=== PATIENT | male | born 1985 | race Caucasian/White ===

== ENCOUNTER 2018-09-13 09:46 | Emergency (ER) | payer MEDICAID, SELFPAY ==
[2018-09-13 09:48] VITALS: BP 170/88; PULSE 94; RESP 18; TEMP 36.6; O2SAT 93; BMI 27.0
--- NOTE | 2018-09-13 09:59 | ED.VISSUMM ---
- ER Visit Summary Date of Service: 09/13/18 Chief Complaint: Overdose History of Present Illness: The patient is a 33 M who presents by EMS after a fentanyl overdose. He found the fentanyl when he was cleaning his house. He has been clean for some time. He required 2 mg of Narcan and then 1 additional milligram per EMS. He currently has no complaints. He is not suicidal. Physical Examination: Afebrile and vital signs unremarkable except for some hypertension. He is alert and oriented. Sitting comfortably. No acute distress. Heart regular. Lungs clear. Abdomen soft. Skin appears normal. Test Results: None indicated Emergency Department Course and Treatment: IV and monitor placed. Patient did not require additional intervention here. He was observed for over an hour. He had no respiratory depression, change in mental status, desaturation, or any other abnormal findings that required further intervention or treatment. Patient does have an established addiction program. Patient will be discharged. Treatment Plan: As above Disposition: Discharge Impression: 1. Opioid overdose This note was generated with [employer] dictation software. It may contain incorrect words, spelling, and punctuation that were not noted in review of the chart prior to signing
--- NOTE | 2018-09-13 10:01 | ED.DEP ---
ED Disposition - Plan for ED Patient: Instructions: OVERDOSE, Opiate Additional Instructions: Follow up with your addiction care provider(s)
[2018-09-13 11:18] VITALS: BP 154/86; PULSE 87; RESP 13; O2SAT 98
== END 2018-09-13 11:23 | disposition home or self-care (01) ==
LOC: ED 10:21
PROVIDERS: Emergency Provider Emergency Medicine
DX: T40.2X1A Poisoning by other opioids, accidental (unintentional), initial encounter (principal); Y92.9 Unspecified place or not applicable; L40.9 Psoriasis, unspecified
CPT/HCPCS: 99285; A4216

== ENCOUNTER 2019-05-13 18:08 | Emergency (ER) | payer MEDICAID, SELFPAY ==
[2019-05-13 18:10] VITALS: BP 137/83; PULSE 68; RESP 17; TEMP 37; O2SAT 97; BMI 24.7
--- NOTE | 2019-05-13 18:31 | ED.VIS.GEN ---
History of Present Illness Chief Complaint: Substance Abuse Detail of Chief Complaint: Requesting detox from opiates Informant: Patient Narrative: Patient presents requesting admission for detox from opiates. Patient has a history of fentanyl abuse. He states he been clean for about a year, but over the past week was letting a friend stay with him. He started using fentanyl again with his friend. He would snort the drug. Last use was 11 hours ago. Patient states he feels slightly shaky and nauseated with some sweats. He went through the program at [facility] previously. - Past Medical History (1) Opiate abuse, episodic Status: Acute Past Medical History - Allergies and Home Meds Allergies/Adverse Reactions: Allergies shellfish derived Allergy (Verified 05/13/19 18:09) Rash Primary Care Physician: Care Physician,No Primary [Primary Care Provider] - Prior records reviewed: Yes Smoking Status: Current every day smoker Alcohol: None Drugs: - - Fentanyl Review of Systems General: Denies: Chills, Fever Eyes: Denies: Visual changes - bilaterally ENT: Denies: Bilateral ear pain Cardiovascular: Denies: Chest pain Respiratory: Denies: Dyspnea, Cough Gastrointestinal: Reports: Nausea. Denies: Abdominal pain, Vomiting Genitourinary: Denies: Dysuria Musculoskeletal: Denies: Extremity Pain Skin: Denies: Rash, Wounds Neurological: Denies: Headache Allergy: Denies: Uticaria Physical Exam Vital Signs/Narrative: Vital Signs Temp Pulse Resp BP Pulse Ox 05/13/19 18:10 98.6 F 68 17 137/83 H 97 Inital Vital Signs reviewed: Yes General: Well nourished, Well developed Head: Normocephalic ENT: Moist mucous membranes Neck: Supple Cardiovascular: Regular rate, Regular rhythm Respiratory: No distress, CTA bilaterally Abdomen: Soft, Nontender Extremities: - - Fine tremor noted to his hands. Skin: Normal color Neurological: Alert, Oriented x3, Normal Strength, Normal Sensation Psychological: Normal affect Diagnostic/Tx/Re-eval - Medical Decision Making Laboratory work-up was ordered along with Ativan and Zofran. As advised by nursing staff the patient change his mind he did not want to stay any longer for treatment. He wants to go spend the night with his family and then will come back tomorrow for detox placement. I advised the patient I cannot force him to stay. We are happy to help him if he would like help. He is given information for follow-up at [facility] as well. ED Disposition - Plan for ED Patient: Disposition: Home or Assisted Living Diagnosis: Opiate abuse, episodic Instructions: Opiate Abuse Referrals: [facility] [STAFF PHYSICIAN] -
--- NOTE | 2019-05-13 18:50 | NURSING ---
PATIENT NOT WANTING TO STAY FOR DETOX OR RECEIVE ANY TREATMENT AT THIS, SAYS HE WILL RETURN IN THE MORNING. THIS RN AND DR JOHANN BAHENA SPOKE WITH PT AND ENCOURAGED HIM TO STAY
== END 2019-05-13 18:55 | disposition home or self-care (01) ==
LOC: ED 18:54
PROVIDERS: Emergency Provider Emergency Medicine
DX: F11.10 Opioid abuse, uncomplicated (principal); F17.200 Nicotine dependence, unspecified, uncomplicated
CPT/HCPCS: 99281; J2405

== ENCOUNTER 2019-05-14 10:15 | Observation (INO) | payer MEDICAID, SELFPAY ==
[2019-05-13 18:10] VITALS: BMI 24.7
[2019-05-14 10:15] VITALS: BP 135/78; PULSE 66; RESP 16; TEMP 36.7; O2SAT 100; BMI 25.9
--- NOTE | 2019-05-14 10:31 | ED.VIS.GEN ---
History of Present Illness Informant: Patient Onset: Weeks - 1 week Context: Gradual Onset Timing: Continuous Quality: aching Location: myalgias Current Severity: Severe Maximum Severity: Severe Worsened by: fentanyl and heroin Relieved by: nothing Associated Symptoms: none Narrative: 33-year-old male history of psoriatic arthritis presents for detox from opiates. He snorts fentanyl and heroin. Had been clean for 1 year but relapsed in the last week. Was here yesterday and decided to leave before being admitted. He has been using today and last night. He has no chest pain shortness of breath palpitations nausea vomiting or diarrhea lightheadedness or dizziness fevers or chills or upper respiratory symptoms. Prior similar symptoms: Yes Recent Illness/Hospitalization: No <Isra Corona - Last Filed: 05/14/19 10:31> <Kyrie Morgan - Last Filed: 05/14/19 10:41> Chief Complaint: Substance Abuse Past Medical History Prior records reviewed: Yes Past Medical History: - - Psoriatic arthritis Surgical History: no surgical history Lives: With Family Smoking Status: Current every day smoker Alcohol: Occasional Drugs: Heroin <Isra Corona - Last Filed: 05/14/19 10:31> <Kyrie Morgan - Last Filed: 05/14/19 10:41> - Allergies and Home Meds Allergies/Adverse Reactions: Allergies shellfish derived Allergy (Verified 05/14/19 10:16) Rash Review of Systems All systems negative except as indicated General: Denies: Chills, Fever, Malaise Eyes: Denies: Visual changes - bilaterally, Blurred Vision - bilaterally, Diplopia ENT: Denies: Rhinorrhea, Sore throat Cardiovascular: Denies: Chest pain, Palpitations, Heart racing Respiratory: Denies: Dyspnea, Cough, Sputum Gastrointestinal: Denies: Abdominal pain, Nausea, Vomiting, Diarrhea Genitourinary: Denies: Dysuria, Hematuria, Frequency Musculoskeletal: Denies: Myalgias, Arthralgias, Neck pain, Back pain Skin: Denies: Rash, Abscess, Abrasions Neurological: Denies: Headache, Weakness, Parasthesia Hematologic: Denies: Easy bruising, Easy bleeding <Isra Corona - Last Filed: 05/14/19 10:31> Physical Exam Vital Signs/Narrative: Vital Signs Temp Pulse Resp BP Pulse Ox 03/14/20 10:15 98.0 F 66 16 135/78 H 100 Inital Vital Signs reviewed: Yes General: Well nourished, Well developed, No Acute Distress Head: Normocephalic, Atraumatic ENT: Moist mucous membranes Neck: Supple, Nontender Cardiovascular: Regular rate, Regular rhythm, No murmurs Respiratory: No distress, CTA bilaterally, Chest nontender Abdomen: Soft, Nontender, Nondistended, Normal bowel sounds, No masses Back: Nontender, Normal Inspection Extremities: Nontender, No edema Skin: Normal color, No rash Neurological: Alert, Oriented x3 Psychological: Normal affect, Normal Mood <Isra Corona - Last Filed: 05/14/19 10:31> Vital Signs/Narrative: Vital Signs Temp Pulse Resp BP Pulse Ox 05/14/19 10:15 98.0 F 66 16 135/78 H 100 <Kyrie Morgan - Last Filed: 05/14/19 10:41> Diagnostic/Tx/Re-eval - Medical Decision Making Patient presents in no acute distress he has normal stable vital signs he is well-appearing. We discussed with him at this time he does not require emergent admission for this as we are in the midst of a nationwide healthcare crisis and a pandemic secondary to the coronavirus. He will be prescribed Phenergan and fentanyl he has been detoxed before at [facility] and he will follow-up there <Isra Corona - Last Filed: 05/14/19 10:31> - Medical Decision Making The patient was seen with Isra the PA agree with history and physical as above, the patient's vital signs are unremarkable he is in no distress, presents asking for aquatic abuse detox, were currently in the midst of national emergency related to coronavirus his physical exam is unremarkable he is in no distress no signs of active withdrawal he just used recently we will discuss with the incident command crisis response team at the hospital related to advisability of admission for the patient <Kyrie Morgan - Last Filed: 05/14/19 10:41> ED Disposition <Isra Corona - Last Filed: 05/14/19 10:31> <Kyrie Morgan - Last Filed: 05/14/19 10:41> - Plan for ED Patient: Disposition: Home or Assisted Living Diagnosis: Opiate abuse, episodic Instructions: Opiate Abuse Prescriptions: Dicyclomine HCl [Bentyl] 20 mg PO TIDAC #20 cap Prescription Printed proMETHazine tablet [Phenergan] 25 mg PO Q6H PRN PRN #10 tab PRN Reason: Nausea Prescription Printed Additional Instructions: [facility] in [place], [place] Address: [address] [place] [id number] Opens 8AM Mon
--- NOTE | 2019-05-14 11:03 | NURSING ---
DR MILLAN FOR DR HARO
--- NOTE | 2019-05-14 11:07 | NURSING ---
MED SURG YANA MEDICALLY ASSISTED WITHDRAWAL/OPIATE ABUSE
[2019-05-14 11:15] VITALS: BP 126/68; PULSE 56; RESP 17; TEMP 36.7; O2SAT 98
--- NOTE | 2019-05-14 11:18 | CM.ED ---
Social Work Referral: Substance Abuse Informant: Rossy Tse Met with patient in room. Patient stating substance of choice is Heroine and Fentanyl. Patient stating to have last used what patient believed was Fentanyl this morning. Patient stating to have plans to being IOP program at [facility] on Thursday and to have thought that patient was going to be able to detox at home but It is not working. Patient wanting to be admitted for medically assisted withdrawal. Updated medical team on above information. Plan is for patient to be admitted. Jacobo DOTSON, KAITLYN
[2019-05-14 11:24] LABS: Absolute Lymphocyte Count 2.19 X10^3/uL (0.83-4.51); Absolute Neutrophil Count 5.4 X10^3/uL (2.0-7.7); Basophil# 0.04 X10^3/uL; Basophil% 0.5 % (0-1); Eosinophil# 0.35 X10^3/uL; Hematocrit 41.7 % (40-54); Hemoglobin 13.8 g/dL (13.0-16.5); Lymphocyte # 2.19 X10^3/ul (4.0); Lymphocyte % 24.7 % (19-41); Mean Corp Hgb Conc 33.1 g/dL (32-36); Mean Corpuscular Hgb 29.3 pg (27.0-32.0); Mean Corpuscular Volume 88.5 fL (80-94); Mean Platelet Vol. 8.5 fl (6.2-12.0); Monocyte# 0.86 X10^3/uL; Monocyte% 9.7 % (0-10); NRBC Flagged by Analyzer 0 % (0-5); Neutrophil # 5.39 X10^3/uL (2.7-7.7); Neutrophil % 60.9 % (47-70); Platelet Count 418 K/mm3 (150-450); RBC Distribution Width CV 12.2 % (11.6-14.6); RBC Distribution Width SD 39.6 fl (35.1-43.9); Red Blood Count 4.71 M/mm3 (4.6-6.2); White Blood Count 8.9 K/mm3 (4.4-11.0)
[2019-05-14 11:36] LABS: Alcohol, Blood (Medical)-Serum < 3.0 mg/dL
[2019-05-14 11:37] LABS: ALB/GLOB Ratio 1.1 RATIO (0.9-2.4); AST(SGOT) 13 U/L (15-37); Alanine Aminotransfer ALT/SGPT 36 U/L (16-61); Albumin, Serum 4.1 g/dL (3.2-5.0); Alkaline Phosphatase 83 U/L (45-117); Anion Gap 6 (5-15); BUN 7 mg/dL (7-18); BUN/Creat Ratio 7.4 RATIO (10-20); Calcium,Total 8.9 mg/dL (8.5-10.1); Chloride 103 mmol/L (98-107); Creatinine, Serum 0.94 mg/dL (0.70-1.30); EST Glomerular Filtration Rate 99 mL/min (>60); Est Glom Filt Rate - Afr Amer 119 mL/min (>60); Estimated Creatinine Clearance 128.68 ml/min; Globulin 3.6 g/dL (2.2-4.2); Glucose 99 mg/dL (74-106); Potassium 3.3 mmol/L (3.5-5.1); Protein, Total 7.7 g/dL (6.4-8.2); Sodium Level 140 mmol/L (136-145)
[2019-05-14 11:38] LABS: Amphetamine Urine VISTA NEGATIVE (<1000 ng/mL); Barbiturate Urine VISTA NEGATIVE (< 200 ng/mL); Benzodiazepine Urine VISTA NEGATIVE (< 200 ng/mL); Cocaine Urine VISTA NEGATIVE (< 300 ng/mL); Ecstacy Urine VISTA NEGATIVE (< 500 ng/mL); Methadone Urine VISTA NEGATIVE (< 300 ng/mL); PCP Urine VISTA NEGATIVE (< 25 ng/mL); THC Urine VISTA NEGATIVE (< 50 ng/mL); Vista UDS pH Range 6
[2019-05-14 12:02] VITALS: BMI 26.1
--- NOTE | 2019-05-14 12:21 | CM.ED ---
Social Work Telephone call to [facility] treatment navigator, jag tirado requesting return phone call to update on patient being admitted for medical withdrawal management. Jacobo Galan MSW, KAITLYN
[2019-05-14 12:50] VITALS: BP 130/79; PULSE 65; RESP 18; TEMP 36.9; O2SAT 98
--- NOTE | 2019-05-14 13:18 | PCM.HP.STD ---
History of Present Illness Date of Admission: 05/14/19 Chief Complaint: Heroin detox The patient is a 33 year old M with no past medical history presents after snorting heroin for the last several days. His last use was 3 to 4 hours ago and is approximately 1 g. He says he never injects only snorts. He had been clean for about 1year and had gone [facility] as well as [facility] and has been doing well. He did have his first child born about 3 weeks ago and then he states that a friend of his who was going through drug rehab as well reached out to him for a place to stay and that is when he started using again. He currently feels okay and states he does not have any tremors or anxiety at the moment. Past Medical History Allergies shellfish derived Allergy (Verified 05/14/19 10:16) Rash Home Medications: Ambulatory Orders Medication Instructions Recorded Dicyclomine HCl [Bentyl] 20 mg PO TIDAC #20 cap 05/14/19 proMETHazine tablet [Phenergan] 25 mg PO Q6H PRN PRN #10 tab 05/14/19 Surgical History: no surgical history Lives: With Family Smoking Status: Current every day smoker Tobacco Use: Cigarettes, Vapor Alcohol: Occasional Drugs: Heroin - *Family History Maternal History Items: Heart Disease, - - Arthritis Paternal History Items: Diabetes, Heart Disease Review of Systems Constitutional: Denies: Chills, Fever, Weight Change HEENT: Denies: Head Aches, Sinus Congestion, Sinus Drainage Cardiovascular: Denies: Chest Pain, Palpitations Respiratory: Denies: Cough, Shortness of breath at rest, Sputum production Gastrointestinal: Denies: Abdominal Pain, Nausea, Vomiting Genitourinary: Denies: Dysuria Musculoskeletal: Denies: Joint Pain, Joint Tenderness Skin: Denies: Rash, Wounds Neurological: Denies: Numbness, Tingling, Focal weakness Psychiatric: Denies: Anxiety, Depression Hematologic/ Lymphatic: Denies: Easy Bruising, Easy Bleeding VTE Information - Inpt Only VTE Present on Admission: No Patient Problems: Active and Suspected Problems Opiate abuse, episodic (Acute) - Physical Exam Vitals/I&O's: Vital Signs Temp Pulse Resp BP Pulse Ox 98.5 F 65 18 130/79 H 98 05/14/19 12:50 05/14/19 12:50 05/14/19 12:50 05/14/19 12:50 05/14/19 12:50 Oxygen Delivery Method Room Air Weight: 192 lb 7.417 oz Body Mass Index (BMI) 26.1 General: Alert, Oriented x3, Cooperative, No apparent distress HEENT: Atraumatic, PERRLA, EOMI, Normocephalic Oral: Moist Mucosa Neck: Supple, No JVD Lungs: Clear to auscultation, Normal air movement, No rhonchi, No wheeze, No rales, Diminished Cardiovascular: Regular rate, Regular Rhythm, Normal S1, Normal S2, No murmurs Abdomen: Soft, Non Tender, Non-Distended, No Hepato-splenomegaly Extremities: No edema, Capillary Refill Less than 3 Seconds Skin: No rashes, No breakdown Neurological: Neuro grossly intact, Sensory exam intact to light touch and pain Psych/Mental Status: Normal Affect, Appropriate Laboratory Results 05/14/19 11:05: WBC 8.9, RBC 4.71, Hgb 13.8, Hct 41.7, MCV 88.5, MCH 29.3, MCHC 33.1, RDW Std Deviation 39.6, RDW Coeff of Ilya 12.2, Plt Count 418, MPV 8.5, Immature Gran % (Auto) 0.200, Neut % (Auto) 60.9, Lymph % (Auto) 24.7, [place] % (Auto) 9.7, Eos % (Auto) 4.0, Baso % (Auto) 0.5, Absolute Neuts (auto) 5.4, Absolute Lymphs (auto) 2.19, Nucleated RBC % 0 05/14/19 11:05: Sodium 140, Potassium 3.3 L, Chloride 103, Carbon Dioxide 31.0, Anion Gap 6, BUN 7, Creatinine 0.94, Estim Creat Clear Calc 128.68, Est GFR (MDRD) Af Amer 119, Est GFR (MDRD) Non-Af 99, BUN/Creatinine Ratio 7.4 L, Glucose 99, Calcium 8.9, Total Bilirubin 0.30, AST 13 L, ALT 36, Alkaline Phosphatase 83, Total Protein 7.7, Albumin 4.1, Globulin 3.6, Albumin/Globulin Ratio 1.1 05/14/19 11:05: Ethyl Alcohol < 3.0 05/14/19 11:10: Urine Opiates Screen NEGATIVE, Urine Methadone Screen NEGATIVE, Ur Barbiturates Screen NEGATIVE, Ur Phencyclidine Scrn NEGATIVE, Ur Amphetamines Screen NEGATIVE, U Methamphetamin-MDMA NEGATIVE, U Benzodiazepines Scrn NEGATIVE, Urine Cocaine Screen NEGATIVE, U Cannabinoids Screen NEGATIVE, Ur Drug Screen Comment Current Medications Buprenorphine HCl (Buprenorphine Hcl) 0 mg SL Q8H MARTINA; Taper Stop: 05/17/19 12:14 Clonidine (Catapres) 0.1 mg PO Q8H PRN PRN PRN Reason: RESTLESSNESS Dicyclomine HCl (Bentyl) 20 mg PO Q6H PRN PRN PRN Reason: Abdominal Discomfort Gabapentin (Neurontin) 300 mg PO Q8H PRN PRN PRN Reason: moderate to severe anxiety Hydroxyzine Pamoate (Vistaril Pamoate Capsule) 50 mg PO Q6H PRN PRN PRN Reason: mild anxiety Loperamide HCl (Imodium) 2 mg PO Q4H PRN PRN PRN Reason: LOOSE STOOLS Methocarbamol (Methocarbamol) 1,500 mg PO Q6H PRN PRN PRN Reason: MUSCLE SPASM Ondansetron HCl (Zofran) 8 mg PO Q8H PRN PRN PRN Reason: NAUSEA Sodium Chloride () 10 - 40 ml IV UD PRN PRN Reason: SALINE FLUSH Trazodone HCl (Desyrel) 100 mg PO QHS PRN PRN PRN Reason: INSOMNIA Assessment/Plan All Active Problems Opiate abuse, episodic (Acute) 1. Heroin abuse/tobacco abuse -Last use was about 3 hours ago and of approximately 1 g -He has been using for the last week or 2 -We will continue with the opiate withdrawal protocol -We will make a nicotine patch available if he needs it -Discussed tobacco cessation DVT: Low risk Inpatient E&M: 25144 Subs Hosp L2
[2019-05-14 17:10] VITALS: BP 114/67; PULSE 55; RESP 16; TEMP 36.7; O2SAT 99
[2019-05-14] MEDS: hydrOXYzine PAM 25 MG Capsule 50 MG PO (17:21)
[2019-05-14] MEDS: Buprenorphine HCl 2 MG TAB.SUBL SL (19:42)
[2019-05-14 20:55] VITALS: BP 125/73; PULSE 67; RESP 16; TEMP 36.7; O2SAT 98
[2019-05-14] MEDS: cloNIDine HCl 0.1 MG Tablet PO (21:07)
[2019-05-14] MEDS: Methocarbamol 750 MG Tablet 1500 MG PO (21:07)
[2019-05-15 01:10] VITALS: BP 115/73; PULSE 50; RESP 18; TEMP 36.6; O2SAT 99
[2019-05-15] MEDS: Buprenorphine HCl 2 MG TAB.SUBL SL ×3 (02:45→18:50)
[2019-05-15 05:10] VITALS: BP 112/70; PULSE 50; RESP 18; TEMP 36.6; O2SAT 99
[2019-05-15 08:33] VITALS: BP 117/73; PULSE 52; RESP 16; TEMP 36.5; O2SAT 99
--- NOTE | 2019-05-15 10:59 | PN_ITS ---
Patient Problems: Active and Suspected Problems Opiate abuse, episodic (Acute) Subjective: Had some sweats last night otherwise denies any anxiety or tremors at this point. He says medications are working well. Vitals/I&O's: Vital Signs Temp Pulse Resp BP Pulse Ox 97.7 F L 52 L 16 117/73 99 05/15/19 08:33 05/15/19 08:33 05/15/19 08:33 05/15/19 08:33 05/15/19 08:33 Oxygen Delivery Method Room Air Weight: 192 lb 7.417 oz Body Mass Index (BMI) 26.1 Intake and Output for Last 24 Hours 05/13/19 05/14/19 05/15/19 23:59 23:59 23:59 Intake Total 420 / 420 700 / 700 Balance 420 / 420 700 / 700 General: Alert, Oriented x3, Cooperative, No apparent distress HEENT: Atraumatic, PERRLA, EOMI, Normocephalic Oral: Moist Mucosa Neck: Supple, No JVD Lungs: Clear to auscultation, Normal air movement, No rhonchi, No wheeze, No rales, Diminished Cardiovascular: Regular rate, Regular Rhythm, Normal S1, Normal S2, No murmurs Abdomen: Soft, Non Tender, Non-Distended, No Hepato-splenomegaly Extremities: No edema, Capillary Refill Less than 3 Seconds Skin: No rashes, No breakdown Neurological: Neuro grossly intact, Sensory exam intact to light touch and pain Psych/Mental Status: Normal Affect, Appropriate Laboratory Results 05/14/19 11:05: WBC 8.9, RBC 4.71, Hgb 13.8, Hct 41.7, MCV 88.5, MCH 29.3, MCHC 33.1, RDW Std Deviation 39.6, RDW Coeff of Ilya 12.2, Plt Count 418, MPV 8.5, Immature Gran % (Auto) 0.200, Neut % (Auto) 60.9, Lymph % (Auto) 24.7, [place] % (Auto) 9.7, Eos % (Auto) 4.0, Baso % (Auto) 0.5, Absolute Neuts (auto) 5.4, Absolute Lymphs (auto) 2.19, Nucleated RBC % 0 05/14/19 11:05: Sodium 140, Potassium 3.3 L, Chloride 103, Carbon Dioxide 31.0, Anion Gap 6, BUN 7, Creatinine 0.94, Estim Creat Clear Calc 128.68, Est GFR ( RD) Af Amer 119, Est GFR (MDRD) Non-Af 99, BUN/Creatinine Ratio 7.4 L, Glucose 99, Calcium 8.9, Total Bilirubin 0.30, AST 13 L, ALT 36, Alkaline Phosphatase 83, Total Protein 7.7, Albumin 4.1, Globulin 3.6, Albumin/Globulin Ratio 1.1 05/14/19 11:05: Ethyl Alcohol < 3.0 05/14/19 11:10: Urine Opiates Screen NEGATIVE, Urine Methadone Screen NEGATIVE, Ur Barbiturates Screen NEGATIVE, Ur Phencyclidine Scrn NEGATIVE, Ur Amphetamines Screen NEGATIVE, U Methamphetamin-MDMA NEGATIVE, U Benzodiazepines Scrn NEGATIVE, Urine Cocaine Screen NEGATIVE, U Cannabinoids Screen NEGATIVE, Ur Drug Screen Comment Current Medications Buprenorphine HCl (Buprenorphine Hcl) 4 mg SL Q8H MARTINA; Taper Stop: 05/17/19 19:14 Last Admin: 05/15/19 02:45 Dose: 4 mg Documented by: Clonidine (Catapres) 0.1 mg PO Q8H PRN PRN PRN Reason: RESTLESSNESS Last Admin: 05/14/19 21:07 Dose: 0.1 mg Documented by: Dicyclomine HCl (Bentyl) 20 mg PO Q6H PRN PRN PRN Reason: Abdominal Discomfort Gabapentin (Neurontin) 300 mg PO Q8H PRN PRN PRN Reason: moderate to severe anxiety Hydroxyzine Pamoate (Vistaril Pamoate Capsule) 50 mg PO Q6H PRN PRN PRN Reason: mild anxiety Last Admin: 05/14/19 17:21 Dose: 50 mg Documented by: Loperamide HCl (Imodium) 2 mg PO Q4H PRN PRN PRN Reason: LOOSE STOOLS Methocarbamol (Methocarbamol) 1,500 mg PO Q6H PRN PRN PRN Reason: MUSCLE SPASM Last Admin: 05/14/19 21:07 Dose: 1,500 mg Documented by: Ondansetron HCl (Zofran) 8 mg PO Q8H PRN PRN PRN Reason: NAUSEA Sodium Chloride () 10 - 40 ml IV UD PRN PRN Reason: SALINE FLUSH Trazodone HCl (Desyrel) 100 mg PO QHS PRN PRN PRN Reason: INSOMNIA STROKE Vital Signs/Narrative: Vital Signs Temp Pulse Resp BP Pulse Ox 05/15/19 08:33 97.7 F L 52 L 16 117/73 99 Medical Necessity - Tobacco Use Smoking Status: Current every day smoker Tobacco Use: Cigarettes, Vapor Assessment/Plan All Active Problems Opiate abuse, episodic (Acute) 1. Heroin abuse/tobacco abuse -Last use was about 3 hours ago and of approximately 1 g -He has been using for the last week or 2 -We will continue with the opiate withdrawal protocol -We will make a nicotine patch available if he needs it -Discussed tobacco cessation DVT: Low risk Inpatient E&M: 18839 Subs Hosp L2
[2019-05-15 11:20] VITALS: BP 126/72; PULSE 68; RESP 16; TEMP 36.6; O2SAT 100
[2019-05-15] MEDS: hydrOXYzine PAM 25 MG Capsule 50 MG PO (14:10)
[2019-05-15 14:29] VITALS: BP 130/72; PULSE 62; RESP 16; TEMP 36.6; O2SAT 100
[2019-05-15 20:53] VITALS: BP 122/69; PULSE 58; RESP 16; TEMP 36.6; O2SAT 100
[2019-05-15] MEDS: traZODone 100 MG Tablet PO (20:58)
[2019-05-15] MEDS: Methocarbamol 750 MG Tablet 1500 MG PO (20:58)
[2019-05-16 02:55] VITALS: BP 117/75; PULSE 58; RESP 16; TEMP 37; O2SAT 100
[2019-05-16] MEDS: Buprenorphine HCl 2 MG TAB.SUBL SL ×3 (02:56→18:51)
[2019-05-16 08:55] VITALS: BP 115/56; PULSE 62; RESP 16; TEMP 36.6; O2SAT 100
--- NOTE | 2019-05-16 09:20 | PCM.PN.HOSP ---
Patient Problems: Active and Suspected Problems Opiate abuse, episodic (Acute) Subjective: Doing well, no issues overnight Vitals/I&O's: Vital Signs Temp Pulse Resp BP Pulse Ox 98.6 F 58 L 16 117/75 100 05/16/19 02:55 05/16/19 02:55 05/16/19 02:55 05/16/19 02:55 05/16/19 02:55 Oxygen Delivery Method Room Air Weight: 192 lb 7.417 oz Body Mass Index (BMI) 26.1 Intake and Output for Last 24 Hours 05/14/19 05/15/19 05/16/19 23:59 23:59 23:59 Intake Total 420 / 420 2049 222 / 222 Balance 420 / 420 2049 General: Alert, Oriented x3, Cooperative, No apparent distress HEENT: Atraumatic, PERRLA, EOMI, Normocephalic Oral: Moist Mucosa Neck: Supple, No JVD Lungs: Clear to auscultation, Normal air movement, No rhonchi, No wheeze, No rales, Diminished Cardiovascular: Regular rate, Regular Rhythm, Normal S1, Normal S2, No murmurs Abdomen: Soft, Non Tender, Non-Distended, No Hepato-splenomegaly Extremities: No edema, Capillary Refill Less than 3 Seconds Skin: No rashes, No breakdown Neurological: Neuro grossly intact, Sensory exam intact to light touch and pain Psych/Mental Status: Normal Affect, Appropriate Current Medications Buprenorphine HCl (Buprenorphine Hcl) 2 mg SL Q8H MARTINA; Taper Stop: 05/17/19 19:14 Last Admin: 05/16/19 02:56 Dose: 2 mg Documented by: Clonidine (Catapres) 0.1 mg PO Q8H PRN PRN PRN Reason: RESTLESSNESS Last Admin: 05/14/19 21:07 Dose: 0.1 mg Documented by: Dicyclomine HCl (Bentyl) 20 mg PO Q6H PRN PRN PRN Reason: Abdominal Discomfort Gabapentin (Neurontin) 300 mg PO Q8H PRN PRN PRN Reason: moderate to severe anxiety Hydroxyzine Pamoate (Vistaril Pamoate Capsule) 50 mg PO Q6H PRN PRN PRN Reason: mild anxiety Last Admin: 05/15/19 14:10 Dose: 50 mg Documented by: Loperamide HCl (Imodium) 2 mg PO Q4H PRN PRN PRN Reason: LOOSE STOOLS Methocarbamol (Methocarbamol) 1,500 mg PO Q6H PRN PRN PRN Reason: MUSCLE SPASM Last Admin: 05/15/19 20:58 Dose: 1,500 mg Documented by: Ondansetron HCl (Zofran) 8 mg PO Q8H PRN PRN PRN Reason: NAUSEA Sodium Chloride () 10 - 40 ml IV UD PRN PRN Reason: SALINE FLUSH Trazodone HCl (Desyrel) 100 mg PO QHS PRN PRN PRN Reason: INSOMNIA Last Admin: 05/15/19 20:58 Dose: 100 mg Documented by: Medical Necessity - Tobacco Use Smoking Status: Current every day smoker Tobacco Use: Cigarettes, Vapor Assessment/Plan All Active Problems Opiate abuse, episodic (Acute) 1. Heroin abuse/tobacco abuse -Last use was about 3 hours ago and of approximately 1 g -He has been using for the last week or 2 -We will continue with the opiate withdrawal protocol -We will make a nicotine patch available if he needs it -Discussed tobacco cessation DVT: Low risk Inpatient E&M: 36754 Subs Hosp L2
[2019-05-16] MEDS: Methocarbamol 750 MG Tablet 1500 MG PO ×2 (10:19→18:53)
--- NOTE | 2019-05-16 11:16 | CASEMGMT ---
Social Work Note SW reviewed notes, pt plans on going to [facility] at discharge and completing IOP. Plan: IOP at [facility] at discharge Lizbet Poe MSW, [employer] HR REPRESENTATIVE
[2019-05-16 14:55] VITALS: BP 128/69; PULSE 57; RESP 16; TEMP 36.7; O2SAT 100
[2019-05-16 20:06] VITALS: BP 132/59; PULSE 67; RESP 16; TEMP 36.8; O2SAT 100
[2019-05-16] MEDS: traZODone 100 MG Tablet PO (21:33)
[2019-05-17 03:30] VITALS: BP 116/58; PULSE 50; RESP 16; TEMP 36.5; O2SAT 100
[2019-05-17 06:30] VITALS: BP 143/65; PULSE 55; RESP 16; TEMP 36.4; O2SAT 100
[2019-05-17] MEDS: Buprenorphine HCl 2 MG TAB.SUBL SL (06:32)
--- NOTE | 2019-05-17 09:10 | DCINST_ITS ---
- Discharge Diagnoses Current Active Problems: Current Active and Chronic Problems Opiate abuse, episodic (Acute) You will use the following diet at home:: Regular Your food should be the consistency of: Regular Your liquids should be the consistency of: Regular/Thin Discharge Activity: Return to Normal Activity Call your doctor if you observe: Fever of 101 or Higher, Shortness of breath, Dizziness, Fainting spells, Swelling in the ankles, Chest pain, Increased palpitations (irregular heartbeat) Instructions: Opiate Abuse Allergies/Adverse Reactions: Allergies shellfish derived Allergy (Verified 05/14/19 10:16) Rash Medications to take at Discharge Dicyclomine HCl [Bentyl] 20 mg PO TIDAC #20 cap 05/14/19 proMETHazine tablet [Phenergan] 25 mg PO Q6H PRN PRN #10 tab 05/14/19 The following prescriptions were given: Dicyclomine HCl [Bentyl] 20 mg PO TIDAC #20 cap Prescription Printed proMETHazine tablet [Phenergan] 25 mg PO Q6H PRN PRN #10 tab PRN Reason: Nausea Prescription Printed Primary Care Physician: Care Physician,No Primary [Primary Care Provider] - Test Results: Test results from this visit will be discussed in further detail at your follow- up appointment, if applicable. Please Follow Up With: [facility] When: Tomorrow
--- NOTE | 2019-05-17 09:12 | PCM.DC.SUM ---
Discharge Date and Diagnosis - Problem List Patient Problems: Active and Suspected Problems Opiate abuse, episodic (Acute) Date of Admission: 05/14/19 Date of Discharge: 05/17/19 - Primary Discharge Diagnosis Active and Suspected Problems Opiate abuse, episodic (Acute) Hospital Course and Treatment Imaging Results: None Consults: None Operations: None Procedures: None Summary of Care Provided: Per HPI: The patient is a 33 year old M with no past medical history presents after snorting heroin for the last several days. His last use was 3 to 4 hours ago and is approximately 1 g. He says he never injects only snorts. He had been clean for about 1year and had gone through drug court as well as [facility] and has been doing well. He did have his first child born about 3 weeks ago and then he states that a friend of his who was going through drug rehab as well reached out to him for a place to stay and that is when he started using again. He currently feels okay and states he does not have any tremors or anxiety at the moment. Hospital Course: 1. Heroin abuse/tobacco [id number] male who had been clean for about a year and then started using 2 weeks ago. His last use was the prior to admission and it was about approximately a gram. He snorts heroin he does not inject. He was admitted and underwent a heroin withdrawal protocol which he tolerated very well. He is going to talk with a counselor from [facility] today, and plan will be for intensive outpatient therapy probably starting tomorrow. I discussed discharge plan with him and he expressed understanding to the risks and benefits of going home. Patient Problems: Active and Suspected Problems Opiate abuse, episodic (Acute) - Physical Exam Vitals/I&O's: Vital Signs Temp Pulse Resp BP Pulse Ox 97.6 F L 55 L 16 143/65 H 100 05/17/19 06:30 05/17/19 06:30 05/17/19 06:30 05/17/19 06:30 05/17/19 06:30 Oxygen Delivery Method Room Air Weight: 192 lb 7.417 oz Body Mass Index (BMI) 26.1 Intake and Output for Last 24 Hours 05/15/19 05/16/19 05/17/19 23:59 23:59 23:59 Intake Total 2049 722 / 722 200 / 200 Balance 2049 722 / 722 200 / 200 General: Alert, Oriented x3, Cooperative, No apparent distress HEENT: Atraumatic, PERRLA, EOMI, Normocephalic Oral: Moist Mucosa Neck: Supple, No JVD Lungs: Clear to auscultation, Normal air movement, No rhonchi, No wheeze, No rales, Diminished Cardiovascular: Regular rate, Regular Rhythm, Normal S1, Normal S2, No murmurs Abdomen: Soft, Non Tender, Non-Distended, No Hepato-splenomegaly Extremities: No edema, Capillary Refill Less than 3 Seconds Skin: No rashes, No breakdown Neurological: Neuro grossly intact, Sensory exam intact to light touch and pain Psych/Mental Status: Normal Affect, Appropriate Current Medications Buprenorphine HCl (Buprenorphine Hcl) 2 mg SL Q12H MARTINA; Taper Stop: 05/17/19 19:14 Last Admin: 05/17/19 06:32 Dose: 2 mg Documented by: Clonidine (Catapres) 0.1 mg PO Q8H PRN PRN PRN Reason: RESTLESSNESS Last Admin: 05/14/19 21:07 Dose: 0.1 mg Documented by: Dicyclomine HCl (Bentyl) 20 mg PO Q6H PRN PRN PRN Reason: Abdominal Discomfort Gabapentin (Neurontin) 300 mg PO Q8H PRN PRN PRN Reason: moderate to severe anxiety Hydroxyzine Pamoate (Vistaril Pamoate Capsule) 50 mg PO Q6H PRN PRN PRN Reason: mild anxiety Last Admin: 05/15/19 14:10 Dose: 50 mg Documented by: Loperamide HCl (Imodium) 2 mg PO Q4H PRN PRN PRN Reason: LOOSE STOOLS Methocarbamol (Methocarbamol) 1,500 mg PO Q6H PRN PRN PRN Reason: MUSCLE SPASM Last Admin: 05/16/19 18:53 Dose: 1,500 mg Documented by: Ondansetron HCl (Zofran) 8 mg PO Q8H PRN PRN PRN Reason: NAUSEA Sodium Chloride () 10 - 40 ml IV UD PRN PRN Reason: SALINE FLUSH Trazodone HCl (Desyrel) 100 mg PO QHS PRN PRN PRN Reason: INSOMNIA Last Admin: 05/16/19 21:33 Dose: 100 mg Documented by: Discharge Activity: Return to Normal Activity Call your doctor if you observe: Fever of 101 or Higher, Shortness of breath, Dizziness, Fainting spells, Swelling in the ankles, Chest pain, Increased palpitations (irregular heartbeat) Home Medications: Medications to take at Discharge Dicyclomine HCl [Bentyl] 20 mg PO TIDAC #20 cap 05/14/19 proMETHazine tablet [Phenergan] 25 mg PO Q6H PRN PRN #10 tab 05/14/19 Following Prescrptions Were Given to Patient: Dicyclomine HCl [Bentyl] 20 mg PO TIDAC #20 cap Prescription Printed proMETHazine tablet [Phenergan] 25 mg PO Q6H PRN PRN #10 tab PRN Reason: Nausea Prescription Printed Primary Care Physician: Care Physician,No Primary [Primary Care Provider] - Please Follow Up With: [facility] When: Tomorrow Patient Instructions: Opiate Abuse Disposition: Home Minutes spent on discharge:: 20 Patient Condition:: Stable Medical Necessity - Tobacco Use Smoking Status: Current every day smoker Tobacco Use: Cigarettes, Vapor Meaningful Use Info Meaningful Use Diagnoses (Choose all that apply): None applicable Inpatient E&M: 43074 Disch Hosp
--- NOTE | 2019-05-17 10:38 | CASEMGMT ---
Addendum entered by Lizbet Poe 05/17/19 10:46: SW received call from Steph at [facility] stating she spoke with pt. Pt plans on following up with his primary counselor Dilip at [facility] and completing MAT, IOP, and individual counseling. Original Note: Social Work Note Pt is RAMP pt. DORCAS spoke with Charge Nurse. Steph DOTSON from [facility] is out sick today but will be calling pt to complete assessment and discuss discharge plans for pt. Lizbet Poe BOARD RUNNER, ER REGISTRAR
[2019-05-17 12:30] VITALS: BP 123/72; PULSE 62; RESP 16; TEMP 36.6; O2SAT 100
== END 2019-05-17 12:10 | disposition home or self-care (01) | DRG 773 ==
LOC: ED 10:40 → MS3 13:21
PROVIDERS: Admitting Provider Family Medicine; Emergency Provider Physician Assistant Medical; Visit Provider Family Medicine
DX: F11.10 Opioid abuse, uncomplicated (principal); F17.210 Nicotine dependence, cigarettes, uncomplicated
CPT/HCPCS: 80053; 80307; 80320; 85025; 99218; 99281; 99284; 99406; H0012; A4216; G0378; G0480

== ENCOUNTER → 2019-08-17 | Outpatient (CLI) | payer MEDICAID, SELFPAY ==
[2019-05-14 12:02] VITALS: BMI 26.1
[2019-08-22 14:08] LABS: QNTFERON TB Mitogen Value > 10.00 IU/mL (.); QNTFERON TB Nil Value 0.04 IU/mL (.); QNTFERON TB1+ Ag Value 0.05 IU/mL (.); QNTFERON TB2+ Ag Value 0.07 IU/mL (.)
[2019-08-22 14:42] LABS: QNTIFERON TB Positive Criteria Negative (Negative)
== END | disposition home or self-care (01) ==
LOC: MTLAB 17:05
PROVIDERS: Referring Provider Dermatology; Visit Provider Dermatology
DX: L40.0 Psoriasis vulgaris (principal); Z79.899 Other long term (current) drug therapy
CPT/HCPCS: 36415; 86480

== ENCOUNTER 2022-06-30 17:19 | Emergency (ER) | payer OTHER, MEDICAID, SELFPAY ==
[2022-06-30 17:20] VITALS: BP 146/89; PULSE 65; RESP 16; TEMP 36.1; O2SAT 99; BMI 23.9
--- NOTE | 2022-06-30 18:22 | EDS_ITS ---
HPI History of Present Illness Chief Complaint: Eye Problem Informant: patient Narrative Narrative: Couple days of worsening left eye pain and photophobia and tearing, he has contacts that he thinks are monthly's, he is homeless, he lost his contact case, with extra contacts so he has been stretching out. The contacts he has longer than he should be, and the left eye is really bothering him. No systemic symptoms. Currently he has the left contact in a case he was given back at the senior care he is staying at, and the right contact is in his eye. He denies any other foreign bodies. He has blurry vision in his left eye only because he does not have his contact in. PFSH PFSH Medical History no medical history no medical history Home Medications dicyclomine 10 mg capsule 20 mg PO TIDAC #20 caps 05/14/19 [Rx Last Taken Unknow n] promethazine 25 mg tablet 25 mg PO Q6H PRN PRN Nausea #10 tabs 05/14/19 [Rx Last Taken Unknown] Allergy/AdvReac Type Severity Reaction Status Date / Time shellfish derived Allergy Rash Verified 06/30/22 17:19 Social History Smoking Status: Current every day smoker tobacco type: cigarettes ROS ROS ED Constitutional Constitutional ED: Denies chills or fever(s) Eyes Eyes: Reports as per HPI, erythema, eye pain, photophobia and tearing; Denies double vision Integumentary Denies abscess or rash Neurologic Neurologic: Denies headache(s), paresthesias or weakness EXAM Physical Exam Const Vital Signs: 06/30/22 17:20 Temperature 97.0 F L Temperature Source Temporal Pulse Rate 65 Respiratory Rate 16 Blood Pressure 146/89 H Blood Pressure Mean 108 Pulse Ox 99 Oxygen Delivery Method Room Air Positive well nourished, well developed and unkempt General Appearance ED: unkempt, well developed and NAD HEENT HEENT Narrative: No sinus tenderness no periorbital swelling/erythema atraumatic Nose: external nose normal Eyes Eyes Narrative: PERRL, EOMI. Blepharospasm and photophobia due to pain. Patient has evidence of diffuse left conjunctival injection without chemosis or obvious foreign body. Right eye is normal. Neck no lymphadenopathy and supple Psych Appearance: unkempt MDM MDM MDM Narrative Medical decision making narrative: With tetracaine drops, patient's pain was temporarily completely resolved. On slit-lamp exam, the anterior chambers deep and quiet, there is no evidence of a corneal ulcer. With fluorescein staining, there is no focal abrasion/dye uptake, but there is some very mild stippling of the cornea diffusely. Is very fine and not severe. Negative Kristy sign. No dendritic lesions. Given all of this, I do not think he has glaucoma, this very likely is a mild keratitis due to the extended contact lens wear, he is advised to stay out of his contact at least in that eye for the next 5 days and prescribed bacitracin ophthalmic ointment to use 2 or 3 times daily until then, follow-up with ophthalmology if still having persistent issues he is comfortable with the plan. Discharge Plan Triage Chief Complaint: Eye Problem ED Provider: Moris Wheeler Dx/Rx/DC Orders Clinical Impression: Punctate keratitis, left eye Instructions: ED Corneal Injury, Contact Lens Prescriptions: No Action promethazine 25 MG tablet 25 mg PO Q6H PRN PRN (Reason: Nausea) Qty: 10 0RF dicyclomine 10 MG capsule 20 mg PO TIDAC Qty: 20 0RF Primary Care Provider: Care Physician,No Primary Referrals: Marlin Bermudez MD [Med Staff - Active Staff] - 1 Week if not improving Care Physician,No Primary [Primary Care Provider] - Activity Restrictions/Additional Instructions: Use antibiotic ointment 2-3 times daily for the next couple days, then as needed, leave contact lens out of the affected eye until pain is gone, at least 5 days. Disposition Disposition: Home, Self Care
[2022-06-30] MEDS: Fluorescein 1 MG STRIP 1 STRIP LEFT EYE (18:40)
[2022-06-30] MEDS: Tetracaine 0.5% Ophthalmic Bottle 2 DRP LEFT EYE (18:40)
[2022-06-30 22:18] VITALS: BP 124/63; PULSE 71; RESP 15; O2SAT 96
[2022-06-30] MEDS: Neomycin/Bacitracin/Polymyxin Opth. Ointment 1 APPLIC LEFT EYE (22:19)
== END 2022-06-30 22:20 | disposition home or self-care (01) ==
PROVIDERS: Emergency Provider Emergency Medicine; Visit Provider Emergency Medicine
DX: H16.142 Punctate keratitis, left eye (principal); F17.210 Nicotine dependence, cigarettes, uncomplicated
CPT/HCPCS: 99283

== ENCOUNTER → 2024-01-21 | Outpatient (CLI) | payer MEDICAID, SELFPAY ==
[2024-01-26 16:10] LABS: QNTFERON TB Mitogen Value > 10.00 IU/mL (.); QNTFERON TB Nil Value 0.01 IU/mL (.); QNTFERON TB1+ Ag Value 0.17 IU/mL (.); QNTFERON TB2+ Ag Value 0.23 IU/mL (.); QNTIFERON TB Positive Criteria Negative (Negative)
== END | disposition home or self-care (01) ==
PROVIDERS: Referring Provider Physician Assistant; Visit Provider Physician Assistant
DX: L40.0 Psoriasis vulgaris (principal); M06.9 Rheumatoid arthritis, unspecified
CPT/HCPCS: 36415; 86480

== ENCOUNTER → 2024-12-13 | Outpatient (CLI) | payer BC, SELFPAY ==
[2024-12-15 13:08] LABS: QNTFERON TB Mitogen Value > 10.00 IU/mL (.); QNTFERON TB Nil Value 0.03 IU/mL (.); QNTFERON TB1+ Ag Value 0.04 IU/mL (.); QNTFERON TB2+ Ag Value 0.05 IU/mL (.); QNTIFERON TB Positive Criteria Negative (Negative)
== END | disposition home or self-care (01) ==
LOC: MTLAB 16:32
PROVIDERS: Referring Provider Physician Assistant; Visit Provider Physician Assistant
DX: L40.0 Psoriasis vulgaris (principal)
CPT/HCPCS: 36415; 86480